=== PATIENT | female | born 1980 | race Two or more races ===

== ENCOUNTER → 2016-10-31 | Outpatient (CLI) | payer BC ==
[2016-10-31 08:49] LABS: Albumin 3.8 g/dL (3.4-5.0); BUN/Creatinine Ratio 17.3; Bilirubin, Total 0.4 mg/dL (0.2-1.0); Calcium 8.8 mg/dL (8.5-10.1); Total Protein 8.6 g/dL (6.4-8.2)
[2016-10-31 09:46] LABS: Basophils # (auto) 0 uL; Basophils % (auto) 0.4 % (0.0-2.0); Eosinophils # (auto) 0.2 uL; Eosinophils % (auto) 1.6 % (0.0-7.0); Hematocrit 43.4 % (36.0-46.0); Hemoglobin 14.8 g/dL (12.2-16.2); Lymphocytes # (auto) 2.7 uL; Lymphocytes % (auto) 28.1 % (10.0-50.0); Mean Corpuscular Hemoglobin 29.6 pg (28.0-32.0); Mean Corpuscular Hgb Conc. 34.1 g/dL (32.0-36.0); Mean Corpuscular Volume 86.8 fL (80.0-100.0); Mean Platelet Volume 8.6 fL (7.4-10.4); Monocytes # (auto) 0.5 uL; Monocytes % (auto) 5.2 % (0.0-12.0); Neutrophils # (auto) 6.2 uL; Neutrophils % (auto) 64.7 % (37.0-80.0); Platelet Count (auto) 306 10^3/uL (140-450); Red Cell Distribution Width 13.2 % (11.6-16.0); White Blood Cell 9.6 10^3/uL (4.4-10.8)
== END | disposition home or self-care (01) ==
LOC: LAB 07:48
PROVIDERS: ATTEND Internal Medicine
DX: D64.9 Anemia, unspecified (principal); I10 Essential (primary) hypertension; N92.0 Excessive and frequent menstruation with regular cycle
CPT/HCPCS: 36415; 80053; 80061; 82728; 84443; 85025

== ENCOUNTER → 2017-01-13 | Day surgery (SDC) | payer BC ==
[2017-01-10 13:11] LABS: Urine Bilirubin Negative (Negative); Urine Blood Negative /uL (Negative); Urine Color Yellow (Yellow); Urine Glucose Normal (Normal); Urine Ketone Negative (Negative); Urine Nitrite Negative (Negative); Urine Urobilinogen Normal (Negative)
[2017-01-10 13:19] LABS: Basophils # (auto) 0 uL; Basophils % (auto) 0.3 % (0.0-2.0); CONDITION Y; Eosinophils # (auto) 0.1 uL; Eosinophils % (auto) 1.3 % (0.0-7.0); Hematocrit 42.5 % (36.0-46.0); Hemoglobin 14.3 g/dL (12.2-16.2); Lymphocytes # (auto) 2.9 uL; Lymphocytes % (auto) 31.6 % (10.0-50.0); Mean Corpuscular Hemoglobin 30.1 pg (28.0-32.0); Mean Corpuscular Hgb Conc. 33.5 g/dL (32.0-36.0); Mean Corpuscular Volume 89.7 fL (80.0-100.0); Mean Platelet Volume 9.1 fL (7.4-10.4); Monocytes # (auto) 0.7 uL; Monocytes % (auto) 7.8 % (0.0-12.0); Neutrophils # (auto) 5.4 uL; Platelet Count (auto) 268 10^3/uL (140-450); Red Cell Distribution Width 13.2 % (11.6-16.0); White Blood Cell 9.2 10^3/uL (4.4-10.8)
[2017-01-10 13:27] LABS: Albumin 3.7 g/dL (3.4-5.0); Calcium 8.8 mg/dL (8.5-10.1); INR 0.96 (0.9-1.15); Partial Thromboplastin Time 29.1 sec (22.64-33.71); Potassium 4.3 mmol/L (3.5-5.1); Prothrombin Time 10.5 sec (9.37-12.3)
[2017-01-10 13:30] LABS: BUN/Creatinine Ratio 16.5
[2017-01-10 13:32] LABS: Bilirubin, Total 0.6 mg/dL (0.2-1.0)
[~2017-01-13] VITALS: Ht 157.5 cm; Wt 85.7 kg
[~2017-01-13] MED LIST: FERRIC SUBSULFATE TOPICAL SOLN 30 ML BTL ONE; HYDROmorphone HCL 2 MG/ML VL IV PRN; IODINE STRONG 5% SOLN 473ML ONE; KETOROLAC TROMETH 30 MG/ML 1ML VIAL IV ONE; LACTATED RINGER'S 1,000 ML IV SCH; METOCLOPRAMIDE HCL 5MG/ml INJ 2ml VIAL IV ONE; MIDAZOLAM HCL 1MG/1ML-2 ML VIAL ONE; ONDANSETRON HCL 4 MG/2 ML VIAL IV PRN; ONDANSETRON HCL 4 MG/2 ML VIAL ONE; PROPOFOL 10 MG/ML 20 ML IV ONE; SODIUM CHLORIDE LOCK 20 ML ONE; ceFAZolin 1GM/50ML D5W 50 ML IV ONE; fentaNYL CITRATE 100 MCG/2 ML VL ONE
[2017-01-13 10:17] VITALS: BP 100/68
== END | disposition home or self-care (01) ==
LOC: SUR 06:45
PROVIDERS: ATTEND Obstetrics & Gynecology
DX: N84.0 Polyp of corpus uteri (principal); R87.623 High grade squamous intraepithelial lesion on cytologic smear of vagina (HGSIL); D64.9 Anemia, unspecified; N92.0 Excessive and frequent menstruation with regular cycle
CPT/HCPCS: 36415; 57522; 58563; 80053; 81003; 84702; 85025; 85610; 85730; 86850; 86900; 86901; J0690; J1170; J1885; J2250; J2405; J2704; J2765; J3010

== ENCOUNTER → 2018-11-27 | Outpatient (CLI) | payer BC ==
[2018-11-27 09:53] LABS: Albumin 3.8 g/dL (3.4-5.0); Calcium 9.1 mg/dL (8.5-10.1); Potassium 4.2 mmol/L (3.5-5.1)
[2018-11-27 09:59] LABS: BUN/Creatinine Ratio 21.3; Bilirubin, Total 0.4 mg/dL (0.2-1.0); Total Protein 8.4 g/dL (6.4-8.2)
[2018-11-27 10:07] LABS: Basophils # (auto) 0 uL; Basophils % (auto) 0.4 % (0.0-2.0); Eosinophils # (auto) 0.1 uL; Eosinophils % (auto) 1.7 % (0.0-7.0); Hematocrit 42.8 % (36.0-46.0); Hemoglobin 14.5 g/dL (12.2-16.2); Lymphocytes # (auto) 2.6 uL; Lymphocytes % (auto) 29.1 % (10.0-50.0); Mean Corpuscular Hemoglobin 30.7 pg (28.0-32.0); Mean Corpuscular Hgb Conc. 33.8 g/dL (32.0-36.0); Mean Corpuscular Volume 90.9 fL (80.0-100.0); Monocytes # (auto) 0.6 uL; Monocytes % (auto) 6.9 % (0.0-12.0); Neutrophils # (auto) 5.5 uL; Neutrophils % (auto) 61.9 % (37.0-80.0); Nucleated Red Blood Cells % 0.1 %; Platelet Count (auto) 235 10^3/uL (140-450); White Blood Cell 8.9 10^3/uL (4.4-10.8)
== END | disposition home or self-care (01) ==
LOC: LAB 08:11
PROVIDERS: ATTEND Internal Medicine
DX: E11.9 Type 2 diabetes mellitus without complications (principal); E78.5 Hyperlipidemia, unspecified; E03.9 Hypothyroidism, unspecified
CPT/HCPCS: 36415; 80053; 80061; 82306; 83036; 84443; 85025

== ENCOUNTER → 2019-12-20 | Outpatient (CLI) | payer OTHER | END | disposition home or self-care (01) | LOC: LAB 14:34 | PROVIDERS: ATTEND Nurse Practitioner Family | DX: Z20.828 Contact with and (suspected) exposure to other viral communicable diseases (principal); Z11.59 Encounter for screening for other viral diseases | CPT/HCPCS: 87635 ==

== ENCOUNTER → 2020-09-28 | Outpatient (CLI) | payer BC ==
[2020-09-28 08:47] LABS: Basophils # (auto) 0 10 ^3/uL (0-0.2); Basophils % (auto) 0.6 % (0.0-2.0); Eosinophils # (auto) 0.1 10 ^3/uL (0-0.8); Eosinophils % (auto) 1.5 % (0.0-7.0); Hematocrit 43.2 % (36.0-46.0); Hemoglobin 14.4 g/dL (12.2-16.2); Lymphocytes # (auto) 2.1 10 ^3/uL (0.4-5.4); Lymphocytes % (auto) 28.4 % (10.0-50.0); Mean Corpuscular Hemoglobin 30.4 pg (28.0-32.0); Mean Corpuscular Hgb Conc. 33.4 g/dL (32.0-36.0); Mean Corpuscular Volume 90.9 fL (80.0-100.0); Monocytes # (auto) 0.5 10 ^3/uL (0-1.3); Monocytes % (auto) 6.4 % (0.0-12.0); Neutrophils # (auto) 4.6 10 ^3/uL (1.6-8.6); Neutrophils % (auto) 63.1 % (37.0-80.0); Nucleated Red Blood Cells % 0.1 %; Platelet Count (auto) 235 10^3/uL (140-450); Red Blood Cells 4.75 10^6/uL (4.0-5.20); Red Cell Distribution Width 13.4 % (11.8-14.3); White Blood Cell 7.3 10^3/uL (4.4-10.8)
[2020-09-28 09:21] LABS: Albumin 3.6 g/dL (3.4-5.0); Potassium 3.9 mmol/L (3.5-5.1)
[2020-09-28 09:30] LABS: BUN/Creatinine Ratio 13.9; Bilirubin, Total 0.5 mg/dL (0.2-1.0); Calcium 8.6 mg/dL (8.5-10.1); Total Protein 7.8 g/dL (6.4-8.2)
== END | disposition home or self-care (01) ==
LOC: LAB 08:28
PROVIDERS: ATTEND Internal Medicine
DX: E11.9 Type 2 diabetes mellitus without complications (principal); E78.5 Hyperlipidemia, unspecified; E55.9 Vitamin D deficiency, unspecified
CPT/HCPCS: 36415; 80053; 80061; 82306; 83036; 84443; 85025

== ENCOUNTER 2020-10-19 18:49 | Emergency (ER) | payer BC ==
[~2020-10-19] VITALS: Ht 157.5 cm; Wt 82.6 kg
[2020-10-19] MEDS ORDERED: ONDANSETRON HCL 4 MG/2 ML VIAL IV ONE (19:15)
[2020-10-19] MEDS ORDERED: MORPHINE SULFATE INJECTION 2 MG/ML SYRG IV ONE (19:15)
[2020-10-19 19:46] LABS: Urine Bacteria FEW /hpf (None Seen); Urine Blood TRACE /uL (Negative); Urine Mucus FEW (None Seen); Urine Specific Gravity 1.027 (1.001-1.035); Urine WBC 1 /hpf (0 - 5)
[2020-10-19 20:07] LABS: Basophils # (auto) 0.3 10 ^3/uL (0-0.2); Basophils % (auto) 2.7 % (0.0-2.0); Eosinophils # (auto) 0.1 10 ^3/uL (0-0.8); Eosinophils % (auto) 1.2 % (0.0-7.0); Hematocrit 40.4 % (36.0-46.0); Hemoglobin 13.6 g/dL (12.2-16.2); Lymphocytes # (auto) 1.9 10 ^3/uL (0.4-5.4); Lymphocytes % (auto) 18.6 % (10.0-50.0); Mean Corpuscular Hemoglobin 30.7 pg (28.0-32.0); Mean Corpuscular Hgb Conc. 33.6 g/dL (32.0-36.0); Mean Corpuscular Volume 91.2 fL (80.0-100.0); Monocytes # (auto) 0.2 10 ^3/uL (0-1.3); Monocytes % (auto) 2.4 % (0.0-12.0); Neutrophils # (auto) 7.7 10 ^3/uL (1.6-8.6); Neutrophils % (auto) 75.1 % (37.0-80.0); Red Blood Cells 4.43 10^6/uL (4.0-5.20); Red Cell Distribution Width 12.7 % (11.8-14.3); White Blood Cell 10.2 10^3/uL (4.4-10.8)
[2020-10-19 20:18] LABS: Albumin 3.8 g/dL (3.4-5.0); Calcium 8.6 mg/dL (8.5-10.1); Potassium 3.3 mmol/L (3.5-5.1)
[2020-10-19 20:21] LABS: BUN/Creatinine Ratio 17.8; Bilirubin, Total 0.5 mg/dL (0.2-1.0); Total Protein 8.2 g/dL (6.4-8.2)
[2020-10-19] MEDS ORDERED: IOHEXOL 300 MG/ML 100ML BOTTLE IJ ONE (20:46)
[2020-10-19 21:10] VITALS: BP 128/69
== END 2020-10-19 22:31 | disposition home or self-care (01) ==
LOC: EEVIPCON 18:49 → ER 18:49
DX: S30.1XXA Contusion of abdominal wall, initial encounter (principal); K80.20 Calculus of gallbladder without cholecystitis without obstruction; V49.9XXA Car occupant (driver) (passenger) injured in unspecified traffic accident, initial encounter; Y93.89 Activity, other specified; Y92.89 Other specified places as the place of occurrence of the external cause; Y99.8 Other external cause status
CPT/HCPCS: 36415; 74177; 80053; 81001; 81025; 85025; 96374; 96375; 99285; J2270; J2405; Q9967

== ENCOUNTER → 2022-02-04 | Outpatient (CLI) | payer BC ==
[2022-02-04 08:58] LABS: Basophils # (auto) 0 10 ^3/uL (0-0.2); Basophils % (auto) 0.6 % (0.0-2.0); Eosinophils # (auto) 0.2 10 ^3/uL (0-0.8); Hematocrit 42.4 % (36.0-46.0); Hemoglobin 14.1 g/dL (12.2-16.2); Lymphocytes # (auto) 2.3 10 ^3/uL (0.4-5.4); Lymphocytes % (auto) 26.2 % (10.0-50.0); Mean Corpuscular Hemoglobin 29.7 pg (28.0-32.0); Mean Corpuscular Hgb Conc. 33.3 g/dL (32.0-36.0); Mean Corpuscular Volume 89.2 fL (80.0-100.0); Monocytes # (auto) 0.6 10 ^3/uL (0-1.3); Neutrophils # (auto) 5.5 10 ^3/uL (1.6-8.6); Neutrophils % (auto) 64.2 % (37.0-80.0); Red Blood Cells 4.75 10^6/uL (4.0-5.20); White Blood Cell 8.6 10^3/uL (4.4-10.8)
[2022-02-04 09:22] LABS: Potassium 3.8 mmol/L (3.5-5.1)
[2022-02-04 09:31] LABS: Albumin 3.8 g/dL (3.4-5.0); BUN/Creatinine Ratio 16.5; Bilirubin, Total 0.8 mg/dL (0.2-1.0); Calcium 8.8 mg/dL (8.5-10.1); Total Protein 7.8 g/dL (6.4-8.2)
== END | disposition home or self-care (01) ==
LOC: LAB 08:38
PROVIDERS: ATTEND Internal Medicine
DX: E78.5 Hyperlipidemia, unspecified (principal); D64.9 Anemia, unspecified; E74.9 Disorder of carbohydrate metabolism, unspecified
CPT/HCPCS: 36415; 80053; 80061; 82306; 83036; 84443; 85025

== ENCOUNTER → 2022-03-16 | Outpatient (CLI) | payer BC | END | disposition home or self-care (01) | LOC: LAB 12:27 | PROVIDERS: ATTEND Podiatrist | DX: M76.822 Posterior tibial tendinitis, left leg (principal) | CPT/HCPCS: 36415; 82565; 84520 ==

== ENCOUNTER → 2023-06-29 | Outpatient (CLI) | payer BC ==
[2023-06-29 11:11] LABS: Urine Bacteria NONE SEEN /hpf (None Seen); Urine Blood Negative /uL (Negative); Urine Clarity Clear (Clear); Urine Color Yellow (Yellow); Urine Protein, UAD Negative (Negative); Urine Specific Gravity 1.014 (1.001-1.035); Urine Urobilinogen Normal (Negative); Urine WBC 1 /hpf (0 - 5); Urine pH 5.5 (5.0-8.0)
== END | disposition home or self-care (01) ==
LOC: LAB 10:06
PROVIDERS: ATTEND Internal Medicine
DX: R82.90 Unspecified abnormal findings in urine (principal)
CPT/HCPCS: 81001

== ENCOUNTER → 2024-01-22 | Outpatient (CLI) | payer BC ==
[2024-01-22 09:21] LABS: Basophils # (auto) 0 10 ^3/uL (0-0.2); Basophils % (auto) 0.5 % (0.0-2.0); Eosinophils # (auto) 0.1 10 ^3/uL (0-0.8); Hematocrit 45.4 % (36.0-46.0); Hemoglobin 15.2 g/dL (12.2-16.2); Lymphocytes # (auto) 2.5 10 ^3/uL (0.4-5.4); Lymphocytes % (auto) 24.3 % (10.0-50.0); Mean Corpuscular Hemoglobin 30.5 pg (28.0-32.0); Mean Corpuscular Hgb Conc. 33.5 g/dL (32.0-36.0); Mean Corpuscular Volume 91.2 fL (80.0-100.0); Monocytes # (auto) 0.6 10 ^3/uL (0-1.3); Monocytes % (auto) 5.9 % (0.0-12.0); Neutrophils % (auto) 68.3 % (37.0-80.0); Red Blood Cells 4.98 10^6/uL (4.0-5.20); Red Cell Distribution Width 12.9 % (11.8-14.3); White Blood Cell 10.2 10^3/uL (4.4-10.8)
[2024-01-22 09:27] LABS: Alanine Aminotransferase 22 U/L (7-40); Alkaline Phosphatase 88 U/L (46-116); Anion Gap 6 (5-15); BUN/Creatinine Ratio 10.7 (10.0-20.0); Blood Urea Nitrogen 8 mg/dL (9-23); Calcium 9.9 mg/dL (8.7-10.4); Carbon Dioxide 27 mmol/L (20-30); Chloride 105 mmol/L (98-107); Glucose 115 mg/dL (74-106); LDL Cholesterol 133 mg/dL (< 100); Potassium 4.4 mmol/L (3.5-5.1); Sodium 138 mmol/L (136-145); Triglycerides 67 mg/dL (< 150)
[2024-01-22 09:28] LABS: Albumin 4.5 g/dL (3.2-4.8); Aspartate Aminotransferase 12 U/L (13-40); Bilirubin, Total 0.6 mg/dL (0.2-1.0); Cholesterol 190 mg/dL (< 200); HDL Cholesterol 50 mg/dL (40-59)
[2024-01-22 09:29] LABS: Total Protein 7.7 g/dL (5.7-8.2)
[2024-01-22 11:08] LABS: Urine Bacteria FEW /hpf (None Seen); Urine Blood 1+ /uL (Negative); Urine Clarity Clear (Clear); Urine Color Yellow (Yellow); Urine Mucus FEW (None Seen); Urine Protein, UAD TRACE (Negative); Urine Specific Gravity 1.025 (1.001-1.035); Urine Urobilinogen Normal (Negative); Urine WBC 1 /hpf (0 - 5); Urine pH 5.5 (5.0-9.0)
== END | disposition home or self-care (01) ==
LOC: LAB 08:37
PROVIDERS: ATTEND Internal Medicine
DX: Z13.1 Encounter for screening for diabetes mellitus (principal); E66.8 Other obesity; R82.90 Unspecified abnormal findings in urine; Z00.01 Encounter for general adult medical examination with abnormal findings
CPT/HCPCS: 36415; 80053; 80061; 81001; 83036; 84439; 84443; 85025